=== PATIENT | male | born 1945 | race Caucasian/White ===

== ENCOUNTER 2022-04-08 09:18 | Outpatient (RCR) | payer OTHER, MEDICAID, SELFPAY | END 2022-10-26 14:12 | disposition home or self-care (01) | LOC: HO.WCC 09:18 | PROVIDERS: PCP Nurse Practitioner Adult Health; Visit Provider Surgery | DX: E11.622 Type 2 diabetes mellitus with other skin ulcer (principal); I87.312 Chronic venous hypertension (idiopathic) with ulcer of left lower extremity; L97.322 Non-pressure chronic ulcer of left ankle with fat layer exposed; D18.01 Hemangioma of skin and subcutaneous tissue; I11.0 Hypertensive heart disease with heart failure; I50.9 Heart failure, unspecified; Z87.891 Personal history of nicotine dependence; Z95.0 Presence of cardiac pacemaker; Z79.899 Other long term (current) drug therapy | CPT/HCPCS: 11042; 11106; 15271; 15275; 29581; 88305; 99212; Q4187 ==